=== PATIENT | male | born 1950 | race Caucasian/White ===

== ENCOUNTER → 2021-07-25 14:07 | Outpatient (CLI) | payer SELFPAY ==
--- NOTE | 2021-07-25 | DI.RAD.S_ITS ---
PROCEDURE: XR CHEST 2V INDICATIONS: CHEST PAIN TECHNIQUE: 2 views of the chest were acquired. COMPARISON: None. FINDINGS: Surgical changes and devices: None. Lungs and pleura: Scattered subsegmental atelectasis and/or scarring. No focal consolidation. No pleural effusion or pneumothorax. Mediastinum: Mediastinal contours are normal. Heart size is normal. Bones and chest wall: Severe scoliosis. IMPRESSION: Scattered subsegmental atelectasis and/or scarring. No focal consolidation. Dictated by: Linwood Aguirre M.D. on 07/25/2021 at 15:29 Approved by: Linwood Aguirre M.D. on 07/25/2021 at 15:31
== END ==
PROVIDERS: PCP Family Medicine; Referring Provider Family Medicine; Visit Provider Family Medicine
DX: R07.9 Chest pain, unspecified (principal)
CPT/HCPCS: 71046

== ENCOUNTER → 2023-05-16 15:14 | Outpatient (ROUT) | payer OTHER, SELFPAY ==
[2023-05-16 15:29] LABS: Add Manual Diff / Slide Review NO; Basophils Absolute Auto 100 /uL (0-100); Eosinophils Absolute Auto 200 /uL (0-450); Eosinophils Percent Auto 2.5 % (2-4); Hematocrit 43.7 % (41-53); Hemoglobin 14.8 g/dL (13.5-17.5); Lymphocytes Absolute Auto 1200 /uL (1100-4500); Lymphocytes Percent Auto 19.2 % (25-40); Mean Corpuscular HGB Conc 33.8 % (30-36); Mean Corpuscular Hemoglobin 31.9 PG (26-34); Mean Corpuscular Volume 94.3 fL (80-100); Monocytes Absolute Auto 400 /uL (0-900); Monocytes Percent Auto 5.8 % (3-14); Neutrophils Absolute Auto 4500 /uL (1500-7000); Neutrophils Percent Auto 71.5 % (50-75); Platelet Count 128 X10^3/uL (150-400); Red Blood Cell Count 4.63 X10^6/uL (4.5-5.9); Red Cell Distribution Width 14.4 % (11.6-14.8); White Blood Cell Count 6.2 X10^3/uL (4.5-11.0)
[2023-05-16 15:37] LABS: Alanine Aminotransferase 24 IU/L (<50); Albumin 4.4 g/dL (3.5-5.0); Albumin Globulin Ratio 1.8 (1.0-2.8); Alkaline Phosphatase 67 U/L (38-126); Aspartate Aminotransferase 34 IU/L (17-59); BUN Creatinine Ratio 26.5 (6-22); Bilirubin Total 0.9 mg/dL (0.2-1.3); Blood Urea Nitrogen 18 mg/dL (9-20); Calcium 9.5 mg/dL (8.4-10.2); Carbon Dioxide 26 mmol/L (22-32); Chloride 104 mmol/L (98-107); Estimated Glomerular Filt Rate > 60 mL/min (>60); Globulin 2.4 g/dL (1.7-4.1); Glucose 103 mg/dL (80-110); HEMOLYSIS 23 (0-50); Magnesium 2.1 mg/dL (1.6-2.3); Potassium 4.9 mmol/L (3.4-5.1); Sodium 139 mmol/L (137-145); Total Protein 6.8 g/dL (6.3-8.2)
[2023-05-16 16:06] LABS: Thyroid Stimulating Hormone 3.12 uIU/mL (0.47-4.68)
[2023-05-16 16:07] LABS: Prostate Specific Antigen 0.335 ng/mL (0.10-4.00)
[2023-05-16 16:21] LABS: Vitamin D 25 Hydroxy (D3) 36.8 ng/mL (30.0-100.0)
== END ==
PROVIDERS: PCP Family Medicine; Visit Provider Family Medicine
DX: Z00.00 Encounter for general adult medical examination without abnormal findings (principal); I48.20 Chronic atrial fibrillation, unspecified
CPT/HCPCS: 80053; 82306; 83735; 84153; 84443; 85025

== ENCOUNTER → 2023-05-28 13:46 | Outpatient (CLI) | payer OTHER, SELFPAY ==
--- NOTE | 2023-05-28 | DI.ECHO.S_ITS ---
[place] [facility]---------+ [facility] +---------+ : : [id number] : : : : [id number] : : : : Phone: [phone]+ Echocardiogram Report + + :Name: JOSE LUIS MAHONEY Study Date: 05/28/2023 Height: 76 in : :[facility] ReadingLocation: Weight: 180 lb : : Gender: Male BSA: 2.1 m2 : :: 1950 Age: 72 yrs BP: 124/77 mmHg: :Reason For Study: Chronic Atrial Fibrillation : :Ordering Physician: CHRISTIAN, : :ANIL Performed By: Fina Hobbs : :Referring: ANIL GONZALES : + + Interpretation Summary The patient was in atrial fibrillation with heart rates between 88 bpm during the exam. Mildly dilated left ventricle with ejection fraction 40-45%. There is mild to moderate global hypokinesis of the left ventricle. The right ventricle is moderately dilated. Right ventricular systolic function is mildly reduced. Severe biatrial enlargement. Mild mitral regurgitation. Mild tricuspid regurgitation. The right ventricular systolic pressure is estimated to be at least 31 mmHg based on an estimated right atrial pressure of 15 mm Hg. The ascending aorta is mildly enlarged. Procedure: A two-dimensional transthoracic echocardiogram with color flow and Doppler was performed. The study quality was technically good. There is no prior echocardiogram noted for this patient. The patient was in atrial fibrillation with heart rates between 88 bpm during the exam. Left Ventricle: The left ventricle is mildly dilated. The ejection fraction is estimated to be 40-45%. There is mild to moderate global hypokinesis of the left ventricle. Diastolic function could not be accurately assessed due to atrial fibrillation. Right Ventricle: The right ventricle is moderately dilated. Right ventricular systolic function is mildly reduced. Atria: There is severe biatrial enlargement. There is no Doppler evidence for an interatrial shunt. Mitral Valve: The mitral valve leaflets appear borderline thickened, but open well. There is a flat closure plane of the the mitral valve leaflets. There is no mitral valve stenosis. There is mild mitral regurgitation. Aortic Valve: The aortic valve is trileaflet. The aortic valve opens well. There is no aortic valve stenosis. There is trace aortic regurgitation. Tricuspid Valve: The tricuspid valve is normal. There is no tricuspid stenosis. There is mild tricuspid regurgitation. The right ventricular systolic pressure is estimated to be at least 31 mmHg based on an estimated right atrial pressure of 15 mm Hg. Pulmonic Valve: The pulmonic valve leaflets are thin and pliable; valve motion is normal. There is no pulmonic valvular stenosis. There is trace pulmonic regurgitation. Great Vessels: The aortic root is borderline dilated. The ascending aorta is mildly enlarged. The pulmonary artery is normal size. The IVC is dilated (diameter is greater than 2.1 cm) and it collapses less than 50% with a sniff. This suggests a high right atrial pressure of 15 mm Hg. Pericardium/ Pleura There is no pericardial effusion. There is no pleural effusion. MMode/2D Measurements & Calculations LVIDd: 3.6 cm LVOT diam: 2.6 cm LVIDs: 2.3 cm Ao root diam: 3.9 cm FS: 36.1 % asc Aorta Diam: 4.0 cm IVSd: 1.4 cm LVPWd: 1.5 cm LV benito. diameter/BSA (cm/m^2): 1.7 LV sys. diameter/BSA (cm/m^2): 1.1 LA A2 area: 36.7 cm2 RA long axis: 8.1 cm LA A4 area: 31.8 cm2 RA area: 38.9 cm2 LA length (vol): 6.9 cm RA vol: 157.9 ml LA vol: 144.4 ml RA : 74.5 ml/m2 LA vol index: 68.2 ml/m2 RVD1 (basal): 5.0 cm LVLs ap4: 6.4 cm LVAd ap2: 31.2 cm2 TAPSE_phl: 2.5 cm LVLd ap2: 6.8 cm LVAs ap2: 24.8 cm2 LVLs ap2: 7.1 cm Doppler Measurements & Calculations Ao V2 max: 84.8 cm/sec LVOT Max Saran: 80.9 cm/sec Ao V2 mean: 61.2 cm/sec LV V1 max P.6 mmHg Ao max P.0 mmHg LV V1 VTI: 15.7 cm Ao mean P.0 mmHg SHASHANK(I,D): 4.9 cm2 Ao V2 VTI: 17.1 cm SHASHANK(V,D): 5.1 cm2 sev ratio: 0.92 SHASHANK indexed to BSA (cm^2/m^2): 2.3 TR max saran: 199.3 cm/sec SV(LVOT): 83.4 ml TR max P.0 mmHg PA V2 max: 74.4 cm/sec PA V2 mean: 48.9 cm/sec PA mean P.0 mmHg PA pr(Accel): 24.6 mmHg AV VR_phl: 0.95 SHASHANK(VTI)/BSA_phl: 2.3 Electronically signed by: Isaak Flores on Reading Physician:05/28/2023 03:16 PM
== END ==
PROVIDERS: PCP Family Medicine; Referring Provider Family Medicine; Visit Provider Family Medicine
DX: I08.1 Rheumatic disorders of both mitral and tricuspid valves (principal); I48.20 Chronic atrial fibrillation, unspecified; I77.89 Other specified disorders of arteries and arterioles
CPT/HCPCS: 93306